=== PATIENT | female | born 1950 | race Caucasian/White ===

== ENCOUNTER 2016-07-21 15:12 | Outpatient (CLI) | payer MEDICARE | END 2016-07-21 15:13 | disposition home or self-care (01) | DX: R74.8 Abnormal levels of other serum enzymes (principal) ==

== ENCOUNTER 2017-01-23 12:28 | Outpatient (CLI) | payer MEDICARE ==
[2017-01-23 13:07] LABS: CALCIUM 8.7 mg/dL (8.5-10.3); CREATININE 3.1 mg/dL (0.4-1.0)
== END 2017-01-23 12:29 | disposition home or self-care (01) ==
LOC: LAB 12:28
PROVIDERS: ATTEND Internal Medicine Nephrology
DX: N05.9 Unspecified nephritic syndrome with unspecified morphologic changes (principal); R80.9 Proteinuria, unspecified
CPT/HCPCS: 36415; 80048; 82570; 84156

== ENCOUNTER 2017-02-14 15:16 | Outpatient (CLI) | payer MEDICARE ==
[2017-02-14 16:01] LABS: HGB - HEMOGLOBIN 11.9 g/dL (12.0-16.0); MEAN CORPUSCULAR HEMOGLOBIN 31.1 pg (27.0-31.0); MEAN CORPUSCULAR HGB CONC 32.9 g/dL (32.0-36.0); MEAN CORPUSCULAR VOLUME 94.6 fL (81.0-99.0); MEAN PLATELET VOLUME 8.5 fL (7.9-10.8); RED BLOOD COUNT 3.81 10^6/uL (4.20-5.40); RED CELL DISTRIBUTION WIDTH 14.5 % (12.0-15.0); WHITE BLOOD COUNT 11.7 x10^3/uL (4.8-10.8)
[2017-02-14 16:16] LABS: CALCIUM 9.2 mg/dL (8.5-10.3); CREATININE 2.5 mg/dL (0.4-1.0); POTASSIUM 4.2 mmol/L (3.5-5.0)
== END 2017-02-14 15:17 | disposition home or self-care (01) ==
LOC: LAB 15:16
PROVIDERS: ATTEND Internal Medicine Nephrology
DX: N05.9 Unspecified nephritic syndrome with unspecified morphologic changes (principal); D70.9 Neutropenia, unspecified; E83.30 Disorder of phosphorus metabolism, unspecified; N25.81 Secondary hyperparathyroidism of renal origin
CPT/HCPCS: 36415; 80048; 83970; 84100

== ENCOUNTER 2017-07-06 15:51 | Outpatient (CLI) | payer MEDICARE ==
[2017-07-06 16:18] LABS: HGB - HEMOGLOBIN 11.3 g/dL (12.0-16.0); MEAN CORPUSCULAR HEMOGLOBIN 30.8 pg (27.0-31.0); MEAN CORPUSCULAR HGB CONC 32.1 g/dL (32.0-36.0); MEAN CORPUSCULAR VOLUME 95.8 fL (81.0-99.0); MEAN PLATELET VOLUME 9.1 fL (7.9-10.8); RED BLOOD COUNT 3.68 10^6/uL (4.20-5.40); RED CELL DISTRIBUTION WIDTH 15.3 % (12.0-15.0); WHITE BLOOD COUNT 12.1 x10^3/uL (4.8-10.8)
[2017-07-06 16:25] LABS: PHOSPHORUS 4.1 mg/dL (2.5-4.6)
[2017-07-06 16:26] LABS: CREATININE,URINE 25.3 mg/dL; PROTEIN/CREATININE RATIO,URINE 4.7 (<=0.2)
== END 2017-07-06 15:52 | disposition home or self-care (01) ==
LOC: LAB 15:51
PROVIDERS: ATTEND Internal Medicine Nephrology
DX: N05.9 Unspecified nephritic syndrome with unspecified morphologic changes (principal); D70.9 Neutropenia, unspecified; R80.9 Proteinuria, unspecified
CPT/HCPCS: 36415; 80048; 82570; 83970; 84100; 84156

== ENCOUNTER 2017-11-28 15:10 | Outpatient (CLI) | payer MEDICARE ==
[2017-11-28 15:30] LABS: CALCIUM 8.7 mg/dL (8.5-10.3); CREATININE 2.8 mg/dL (0.4-1.0)
== END 2017-11-28 15:11 | disposition home or self-care (01) ==
LOC: LAB 15:10
PROVIDERS: ATTEND Internal Medicine Nephrology
DX: N05.9 Unspecified nephritic syndrome with unspecified morphologic changes (principal)
CPT/HCPCS: 36415; 80048

== ENCOUNTER 2018-11-07 08:57 | Outpatient (CLI) | payer MEDICARE ==
[2018-11-07 09:12] LABS: HGB - HEMOGLOBIN 11.6 g/dL (12.0-16.0); MEAN CORPUSCULAR HEMOGLOBIN 31.7 pg (27.0-31.0); MEAN CORPUSCULAR HGB CONC 32.4 g/dL (32.0-36.0); MEAN CORPUSCULAR VOLUME 97.8 fL (81.0-99.0); MEAN PLATELET VOLUME 8.5 fL (7.9-10.8); RED BLOOD COUNT 3.67 10^6/uL (4.20-5.40); RED CELL DISTRIBUTION WIDTH 15.1 % (12.0-15.0)
[2018-11-07 09:37] LABS: CREATININE 2.8 mg/dL (0.4-1.0)
[2018-11-07 09:58] LABS: FOLATE 10.74 ng/mL (5.90 - >24.8)
[2018-11-07 09:58] LABS: CREATININE,URINE 163.8 mg/dL
[2018-11-07 16:22] LABS: PHOSPHORUS 3.3 mg/dL (2.5-4.6)
== END 2018-11-07 08:58 | disposition home or self-care (01) ==
LOC: LAB 08:57
PROVIDERS: ATTEND Internal Medicine Nephrology
DX: N05.9 Unspecified nephritic syndrome with unspecified morphologic changes (principal); D63.1 Anemia in chronic kidney disease; D70.9 Neutropenia, unspecified; D64.9 Anemia, unspecified; R80.9 Proteinuria, unspecified; D50.0 Iron deficiency anemia secondary to blood loss (chronic); E83.30 Disorder of phosphorus metabolism, unspecified; N25.81 Secondary hyperparathyroidism of renal origin
CPT/HCPCS: 36415; 80048; 82570; 82607; 82746; 83540; 83970; 84100; 84156; 84466; 85027

== ENCOUNTER 2019-10-27 08:00 | Outpatient (CLI) | payer MEDICARE ==
[2019-10-27 17:58] LABS: HGB - HEMOGLOBIN 11.2 g/dL (12.0-16.0); MEAN CORPUSCULAR HGB CONC 31.4 g/dL (32.0-36.0); MEAN PLATELET VOLUME 10.8 fL (7.9-10.8); RED BLOOD COUNT 3.5 10^6/uL (4.20-5.40); RED CELL DISTRIBUTION WIDTH 13.9 % (12.0-15.0); WHITE BLOOD COUNT 7.3 x10^3/uL (4.8-10.8)
[2019-10-27 18:13] LABS: CALCIUM 8.7 mg/dL (8.5-10.3); CREATININE 2.7 mg/dL (0.4-1.0)
== END 2019-10-27 23:59 | disposition home or self-care (01) ==
LOC: LAB.WCP 08:00
PROVIDERS: ATTEND Internal Medicine Nephrology
DX: N05.9 Unspecified nephritic syndrome with unspecified morphologic changes (principal); N25.81 Secondary hyperparathyroidism of renal origin; D70.9 Neutropenia, unspecified; D63.1 Anemia in chronic kidney disease
CPT/HCPCS: 36415; 80048; 83970; 85027

== ENCOUNTER 2019-11-06 13:19 | Outpatient (CLI) | payer MEDICARE | END 2019-11-06 13:20 | disposition home or self-care (01) | LOC: DI 13:19 | PROVIDERS: ATTEND Family Medicine | DX: I50.20 Unspecified systolic (congestive) heart failure (principal) | CPT/HCPCS: 93306 ==

== ENCOUNTER 2021-09-04 18:26 | Outpatient (CLI) | payer MEDICARE | END 2021-09-04 18:27 | disposition E | LOC: EMS 18:26 ==